=== PATIENT | female | born 2000 | race Caucasian/White ===

== ENCOUNTER 2019-07-16 16:45 | Emergency (ER) | payer OTHER ==
[~2019-07-16] VITALS: Ht 170.2 cm; Wt 56.2 kg
[2019-07-16] MEDS ORDERED: PREN1TAB81 PO (17:06)
[2019-07-16] MEDS ORDERED: FOLI1TAB16 PO (17:06)
[2019-07-16] MEDS ORDERED: THIA100T13 PO (17:06)
[2019-07-16] MEDS ORDERED: QUET300T2 PO (17:06)
[2019-07-16] MEDS ORDERED: ESCI10TA PO (17:06)
[2019-07-16] MEDS ORDERED: DIAZ10TA PO (17:06)
--- NOTE | 2019-07-16 17:21 | NUR ---
PT IS IN ROOM #1B. DR KNOX EVALUATED THE PT.
[2019-07-16 18:05] VITALS: BP 118/69
--- NOTE | 2019-07-16 18:06 | NUR ---
PT WASD/C'd TO HOME. D/C INSTRUCTIONS GIVEN TO THE PT.
== END 2019-07-16 18:06 | disposition home or self-care (01) ==
LOC: ER 16:54
DX: N91.1 Secondary amenorrhea (principal); Z79.899 Other long term (current) drug therapy
CPT/HCPCS: 36415; A4663